=== PATIENT | male | born 1995 | race Caucasian/White ===

== ENCOUNTER 2018-10-21 15:11 | Emergency (ER) | payer OTHER ==
[2018-10-21] MEDS ORDERED: DIPHTH,PERTUSS(ACELL),TET 0.5 ML DISP.SYRIN IM ONE ×2 (15:44→15:50)
[2018-10-21 15:51] VITALS: BP 116/80; PULSE 90; TEMP 98; BMI 28.2
--- NOTE | 2018-10-21 15:53 | PDOC ---
History of Present Illness - General Chief Complaint: Laceration Stated Complaint: RIGHT FINGER LACERATION Time Seen by Provider: 10/21/18 15:13 History Source: Patient Exam Limitations: No Limitations - History of Present Illness Initial Comments: 10/21/18 15:45 22y M no pmhx presenst with complaint of R ring finger laceration. pt was trying to cut a glass tessie and attemptd to snap it and it snapped and lacerated his finger denies any numbness/tinglingweakness. +bleeding intially but is controlled last tetanus was remote past no other injuries ROS: MSK: +laceration w/o numbness/tingling/weakness PE: General: no acute distress, well appearing MSK: approx 1.5cm superficial laceratio nto the radial aspect of the R ring finger, sensation intact throughout, flexion and extension at the DIP/PIP intact will update tetanus Xray to r/o fb will close with sutures Past History - Past Medical History Allergies/Adverse Reactions: Allergies Allergy/AdvReac Type Severity Reaction Status Date / Time No Known Allergies Allergy Verified 10/21/18 15:41 Home Medications: Ambulatory Orders NK [No Known Home Medication] 10/21/18 - Immunization History Td Vaccination: No - Suicide/Smoking/Psychosocial Hx Smoking Status: Yes Smoking History: Unknown if ever smoked Number of Cigarettes Smoked Daily: 0 Procedures - Consent Consent obtained: Verbal - Laceration/Wound Repair Right 3rd digit Wound Length: to 2.5 cm Wound Explored: clean Wound's Depth, Shape: superficial Irrigated w/ Saline: Yes Anesthesia: 1% Lidocaine Amount of Anesthetic (ccs): 2 Wound Debrided: minimal Wound Repaired With: Sutures Suture Size/Type: 4:0 Number of Sutures: 2 Layer Closure: No Sterile Dressing Applied: Yes ED Treatment Course - RADIOLOGY Radiology Studies Ordered: Category Date Time Status FINGER(S) RIGHT [RAD] Stat Radiology 10/21/18 15:44 Ordered Medical Decision Making - Medical Decision Making 10/21/18 17:53 no fb laceration sutured will dc with supportive care return precautinos were discussed *DC/Admit/Observation/Transfer Diagnosis at time of Disposition: Finger laceration Qualifiers: Encounter type: initial encounter Finger: middle finger Damage to nail status: without damage Foreign body presence: without foreign body Laterality: right Qualified Code(s): S61.212A - Laceration without foreign body of right middle finger without damage to nail, initial encounter - Discharge Dispostion Disposition: HOME Condition at time of disposition: Improved Decision to Admit order: No - Referrals - Patient Instructions Printed Discharge Instructions: DI for Laceration Repair Additional Instructions: Return to the emergency department immediately with ANY new, persistent or worsening symptoms including any redness, bleeding, purulent discharge, swelling or other concerns. Keep the area clean and dry for 48 hours. Afterwards he may clean gently with soap and water. Apply bacitracin twice a day. Keep the area away from the sun for the next 9 months, please use sunscreen and wear a hat if you need to be in the sun to improve appearance of the scar. Return in 7-10 days for suture removal. You MUST call and follow up with your doctor tomorrow for further evaluation of your symptoms. Results were discussed with you. Please make sure your doctor reviews the results of your emergency evaluation. Print Language: JORDANIAN - Post Discharge Activity
== END 2018-10-21 18:00 | disposition home or self-care (01) ==
LOC: FER 15:11
PROC: 0HQFXZZ Repair Right Hand Skin, External Approach (ICD-10-PCS; principal; 2018-10-21)
PROC: 3E0234Z Introduction of Serum, Toxoid and Vaccine into Muscle, Percutaneous Approach (ICD-10-PCS; 2018-10-21)
DX: S61.214A Laceration without foreign body of right ring finger without damage to nail, initial encounter (principal); W25.XXXA Contact with sharp glass, initial encounter; Y93.89 Activity, other specified; Y92.89 Other specified places as the place of occurrence of the external cause
CPT/HCPCS: 73140-TC-RT-FY; 90715; 99282-25